=== PATIENT | male | born 1945 | race Caucasian/White ===

== ENCOUNTER 2018-01-16 10:12 | Inpatient (IN) ==
[2018-01-16] MEDS ORDERED: VECURONIUM 10 MG VIAL IV STA ×2 (10:26→13:00)
[2018-01-16] MEDS ORDERED: VECURONIUM 10 MG VIAL IV ONE (10:30)
[2018-01-16] MEDS ORDERED: ETOMIDATE 20 MG/10 ML VIAL IV ONE ×2 (10:30→10:34)
[2018-01-16] MEDS ORDERED: LACTATED RINGERS 1,000 ML IV STA (10:33)
[2018-01-16 10:53] LABS: Basophils # 0.1 10*3/uL (0.0-0.2); Basophils % 0.9 % (0.0-0.8); Eosinophils # 0.8 10*3/uL (0.0-0.87); Eosinophils % 10.9 % (0.00-10.9); Hematocrit 37.2 VOL% (42.0-52.0); Hemoglobin 12.1 GM/DL (14.0-18.0); Immature Granulocytes % 0.3 %; Immature Granulocytes Absolute 0.02 #; Lymphocytes # 2.1 10*3/uL (1.4-4.0); Lymphocytes % 27.3 % (21.2-54.2); Mean Corpuscular HGB Conc 32.5 GM/DL (32-36); Mean Corpuscular Hemoglobin 28 PG (27-34); Mean Corpuscular Volume 85.7 FL (87-102); Mean Platelet Volume 10.7 FL (9.6-12.0); Monocytes # 0.6 10*3/uL (0.11-0.8); Monocytes % 8.5 % (1.7-12.7); Neutrophils # 3.9 10*3/uL (1.4-7.4); Neutrophils % 52.1 % (38.7-73.9); Platelet Count 241 T/CUMM (130-400); Red Blood Count 4.34 MC/CUMM (3.8-5.5); Red Cell Distribution Width 18.2 % (9.3-17.3); White Blood Count 7.5 T/CUMM (4-12)
[2018-01-16 10:59] LABS: PT Patient Result 10.8 SECS; Partial Thromboplastin Time 24.7 SECS (0-40)
[2018-01-16] MEDS ORDERED: PROPOFOL 1,000 MG/100 ML BOTTLE IV ONE (11:12)
[2018-01-16] MEDS ORDERED: PROPOFOL 1,000 MG/100 ML BOTTLE IV SCH (11:20)
[2018-01-16 11:23] LABS: Lactic Acid 7.3 MMOL/L (0.4-2.0)
[2018-01-16 11:24] LABS: Alanine Aminotransferase 19 U/L (16-61); Albumin 3.4 G/DL (3.4-5.0); Alkaline Phosphatase 106 U/L (45-117); Amylase 29 U/L (25-115); Aspartate Amino Transferase 22 U/L (0-37); Blood Urea Nitrogen 19 MG/DL (7-18); Calcium 8.4 MG/DL (8.5-10.1); Glucose 145 MG/DL (74-106); Osmolality,Calculated 292.7 MOS/KG (273-304); Potassium 3.4 MMOL/L (3.5-5.1); Sodium 145 MMOL/L (136-145); Total Protein 6.7 G/DL (6.4-8.3)
[2018-01-16 11:38] LABS: Barbiturates Screen,Urine Negative (Negative); Benzodiazepines Screen,Urine Positive (Negative); Cannabinoid Screen,Urine Negative (Negative); Opiate Screen,Urine Negative (Negative); Phencyclidine Screen,Urine Negative (Negative)
[2018-01-16 12:00] LABS: Amorphous Crystals,Urine Occasional /HPF (Few); Apearance,Urine CLOUDY (Clear); Bacteria,Urine Occasional /HPF (Few); Bilirubin,Urine Negative (Negative); Blood, Urine Moderate mg/dL (Negative); Glucose,Urine (UA) Negative (Negative); Hyaline Casts,Urine 4 /LPF (0-3); Ketones,Urine Negative (Negative); Mucus,Urine Occasional /LPF (Occasional); Nitrite,Urine Negative (Negative); Protein,Urine 100 MG/DL; RBC,Urine 19 /HPF (0-4); Squamous Epithelial Cell,Urine Occasional /HPF (0-10); Urine Specific Gravity 1.017 (1.001-1.035); Urine Urobilinogen < 2.0 EU/DL (0.2-1.0); WBC,Urine 5 /HPF (0-6)
[2018-01-16 12:01] LABS: Urine Color Yellow (Yellow)
[2018-01-16 12:13] LABS: ABG Base Excess -3.5 MMOL/L (-2.5-2.5); ABG HCO3 21.5 MMOL/L (20-26); ABG Oxygen Saturation 99.7 % (95-100); ABG PH 7.368 (7.35-7.45); ABG TCO2 19.2 MMOL/L (23-27)
[2018-01-16] MEDS ORDERED: SODIUM CHLORIDE 0.9% 1,000 ML IV STA (12:57)
[2018-01-16] MEDS: SODIUM CHLORIDE 0.9% 1,000 ML IV SCH ×2 (13:15→22:51)
[2018-01-16] MEDS ORDERED: ONDANSETRON 4 MG/2 ML VIAL IV PRN (13:42)
[2018-01-16] MEDS ORDERED: LACTULOSE 20 GM/30 ML UDCUP PO PRN (13:42)
[2018-01-16] MEDS ORDERED: ALBUTEROL 2.5 MG/3 ML NEB RESP TX PRN (13:42)
[2018-01-16] MEDS ORDERED: ACETAMINOPHEN 325 MG TABLET PO PRN (13:42)
[2018-01-16 14:24] LABS: Thyroid Stimulating Hormone 2.51 uIU/ml (0.358-3.74)
[2018-01-16] MEDS: PANTOPRAZOLE 40 MG VIAL IV SCH (15:19)
[2018-01-16] MEDS ORDERED: DEXTROSE 50% 25 GM/50 ML VIAL IV PRN (15:35)
[2018-01-16] MEDS ORDERED: GLUCAGON 1 MG VIAL IM PRN (15:35)
[2018-01-16] MEDS: ENOXAPARIN 40 MG/0.4 ML SYRINGE SUBCUT SCH (16:22)
[2018-01-16] MEDS: PROPOFOL 1,000 MG/100 ML BOTTLE IV SCH ×2 (16:51→20:22)
[2018-01-16] MEDS: INSULIN LISPRO 100 UNIT/ML SUBCUT SCH (17:37)
[2018-01-16] MEDS: METOPROLOL TARTRATE 25 MG TABLET PO SCH (21:21)
[2018-01-16] MEDS: POTASSIUM CHLORIDE 20 MEQ TABLET PO PRN (21:21)
[2018-01-16] MEDS: ROSUVASTATIN 20 MG TABLET PO SCH (21:21)
[2018-01-16] MEDS: TERAZOSIN 5 MG CAPSULE PO SCH (23:22)
[2018-01-17] MEDS: INSULIN LISPRO 100 UNIT/ML SUBCUT SCH ×5 (00:33→20:32)
[2018-01-17] MEDS: SODIUM CHLORIDE 0.9% 1,000 ML IV SCH ×5 (00:33→21:26)
[2018-01-17] MEDS: POTASSIUM CHLORIDE 20 MEQ TABLET PO PRN ×5 (00:34→11:08)
[2018-01-17] MEDS: PROPOFOL 1,000 MG/100 ML BOTTLE IV SCH ×2 (01:16→05:21)
[2018-01-17 04:06] LABS: Apearance,Urine CLEAR (Clear); Bilirubin,Urine Negative (Negative); Blood, Urine Moderate mg/dL (Negative); Glucose,Urine (UA) Negative (Negative); Ketones,Urine Negative (Negative); Mucus,Urine Occasional /LPF (Occasional); Nitrite,Urine Negative (Negative); Protein,Urine Negative; RBC,Urine 31 /HPF (0-4); Squamous Epithelial Cell,Urine Occasional /HPF (0-10); Urine Color Yellow (Yellow); Urine Specific Gravity 1.031 (1.001-1.035); Urine Urobilinogen < 2.0 EU/DL (0.2-1.0); WBC,Urine 19 /HPF (0-6)
[2018-01-17 04:44] LABS: ABG Base Excess -2.4 MMOL/L (-2.5-2.5); ABG HCO3 20.7 MMOL/L (20-26); ABG Oxygen Saturation 96.9 % (95-100); ABG PCO2 30.3 MM HG (35-48); ABG PH 7.453 (7.35-7.45); ABG PO2 99.1 MM HG (80-95); ABG TCO2 21.7 MMOL/L (23-27); Allen Test Positive; Pt O2 Delivery Device Ventilator
[2018-01-17 06:00] LABS: Basophils % 0.3 % (0.0-0.8); Eosinophils # 0.1 10*3/uL (0.0-0.87); Eosinophils % 0.8 % (0.00-10.9); Hemoglobin 10.6 GM/DL (14.0-18.0); Immature Granulocytes % 0.4 %; Immature Granulocytes Absolute 0.05 #; Lymphocytes # 1.1 10*3/uL (1.4-4.0); Lymphocytes % 8.8 % (21.2-54.2); Mean Corpuscular HGB Conc 33.1 GM/DL (32-36); Mean Corpuscular Hemoglobin 28 PG (27-34); Mean Corpuscular Volume 83.6 FL (87-102); Mean Platelet Volume 10.2 FL (9.6-12.0); Monocytes # 1.4 10*3/uL (0.11-0.8); Neutrophils % 78.7 % (38.7-73.9); Platelet Count 185 T/CUMM (130-400); Red Blood Count 3.83 MC/CUMM (3.8-5.5); Red Cell Distribution Width 18.4 % (9.3-17.3); White Blood Count 12.7 T/CUMM (4-12)
[2018-01-17 06:23] LABS: Hypochromasia 1+; Microcytosis 1+
[2018-01-17 06:24] LABS: Elliptocytes Few; Platelet Estimate Adequate
[2018-01-17 06:26] LABS: Albumin 2.9 G/DL (3.4-5.0); Bilirubin,Total 0.8 MG/DL (0.2-1.0); Calcium 7.8 MG/DL (8.5-10.1); Osmolality,Calculated 287.8 MOS/KG (273-304); Potassium 3.4 MMOL/L (3.5-5.1); Total Protein 5.5 G/DL (6.4-8.3)
[2018-01-17] MEDS: METOPROLOL TARTRATE 25 MG TABLET PO SCH ×2 (08:00→20:32)
[2018-01-17] MEDS: ASPIRIN EC 81 MG TABLET PO SCH (08:01)
[2018-01-17] MEDS: FLUoxetine 20 MG CAPSULE PO SCH (08:01)
[2018-01-17] MEDS: CLOPIDOGREL 75 MG TABLET PO SCH (08:01)
[2018-01-17 12:40] LABS: ABG Base Excess -3.6 MMOL/L (-2.5-2.5); ABG HCO3 21.5 MMOL/L (20-26); ABG Oxygen Saturation 98.1 % (95-100); ABG PCO2 31.6 MM HG (35-48); ABG PH 7.413 (7.35-7.45); ABG TCO2 18.2 MMOL/L (23-27)
[2018-01-17] MEDS: PANTOPRAZOLE 40 MG VIAL IV SCH (14:45)
[2018-01-17 15:25] LABS: Risk Ratio 1.88; VLDL CHOLESTEROL 24.8 MG/DL
[2018-01-17] MEDS: ENOXAPARIN 40 MG/0.4 ML SYRINGE SUBCUT SCH (15:39)
[2018-01-17] MEDS: ROSUVASTATIN 20 MG TABLET PO SCH (20:32)
[2018-01-17] MEDS: TERAZOSIN 5 MG CAPSULE PO SCH (20:32)
[2018-01-18 03:48] LABS: Basophils % 0.3 % (0.0-0.8); Eosinophils % 0.3 % (0.00-10.9); Hemoglobin 9.9 GM/DL (14.0-18.0); Immature Granulocytes % 1.1 %; Immature Granulocytes Absolute 0.11 #; Lymphocytes # 0.8 10*3/uL (1.4-4.0); Mean Corpuscular HGB Conc 31.9 GM/DL (32-36); Mean Corpuscular Hemoglobin 28 PG (27-34); Mean Corpuscular Volume 87.3 FL (87-102); Mean Platelet Volume 11.6 FL (9.6-12.0); Monocytes # 0.8 10*3/uL (0.11-0.8); Monocytes % 7.7 % (1.7-12.7); Neutrophils # 8.5 10*3/uL (1.4-7.4); Neutrophils % 82.6 % (38.7-73.9); Platelet Count 149 T/CUMM (130-400); Red Blood Count 3.55 MC/CUMM (3.8-5.5); Red Cell Distribution Width 18.7 % (9.3-17.3); White Blood Count 10.3 T/CUMM (4-12)
[2018-01-18 04:10] LABS: ABG Base Excess -3.8 MMOL/L (-2.5-2.5); ABG HCO3 19.7 MMOL/L (20-26); ABG Oxygen Saturation 93.5 % (95-100); ABG PCO2 30.4 MM HG (35-48); ABG PH 7.429 (7.35-7.45); ABG PO2 70.9 MM HG (80-95); ABG TCO2 20.6 MMOL/L (23-27); Allen Test Positive
[2018-01-18 05:41] LABS: Calcium 8.2 MG/DL (8.5-10.1); Osmolality,Calculated 289.8 MOS/KG (273-304); Potassium 3.9 MMOL/L (3.5-5.1)
[2018-01-18] MEDS: METOPROLOL TARTRATE 25 MG TABLET PO SCH ×2 (09:52→21:29)
[2018-01-18] MEDS: ASPIRIN EC 81 MG TABLET PO SCH (09:52)
[2018-01-18] MEDS: CLOPIDOGREL 75 MG TABLET PO SCH (09:53)
[2018-01-18] MEDS: FLUoxetine 20 MG CAPSULE PO SCH (09:53)
[2018-01-18] MEDS: INSULIN LISPRO 100 UNIT/ML SUBCUT SCH ×4 (12:37→20:33)
[2018-01-18] MEDS: PANTOPRAZOLE 40 MG VIAL IV SCH (13:39)
[2018-01-18] MEDS: ENOXAPARIN 40 MG/0.4 ML SYRINGE SUBCUT SCH (17:16)
[2018-01-18] MEDS: SODIUM CHLORIDE 0.9% 1,000 ML IV SCH ×2 (20:30→20:34)
[2018-01-18] MEDS: ROSUVASTATIN 20 MG TABLET PO SCH (21:29)
[2018-01-18] MEDS: TERAZOSIN 5 MG CAPSULE PO SCH (21:29)
[2018-01-19 04:12] LABS: Calcium 8.2 MG/DL (8.5-10.1); Osmolality,Calculated 280.4 MOS/KG (273-304); Potassium 3.6 MMOL/L (3.5-5.1)
[2018-01-19] MEDS: SODIUM CHLORIDE 0.9% 1,000 ML IV SCH ×2 (06:30→13:17)
[2018-01-19] MEDS: CLOPIDOGREL 75 MG TABLET PO SCH (08:51)
[2018-01-19] MEDS: ASPIRIN EC 81 MG TABLET PO SCH (08:51)
[2018-01-19] MEDS: METOPROLOL TARTRATE 25 MG TABLET PO SCH ×2 (08:51→20:55)
[2018-01-19] MEDS: FLUoxetine 20 MG CAPSULE PO SCH (08:52)
[2018-01-19] MEDS: INSULIN LISPRO 100 UNIT/ML SUBCUT SCH ×2 (08:53→11:30)
[2018-01-19] MEDS: ENOXAPARIN 40 MG/0.4 ML SYRINGE SUBCUT SCH (17:38)
[2018-01-19] MEDS: CIPROFLOXACIN INJ 400 MG in PREMIX 1 EACH IV SCH (17:38)
[2018-01-19] MEDS: AMPICILLIN 500 MG CAPSULE PO SCH ×2 (17:40→20:55)
[2018-01-19] MEDS: TERAZOSIN 5 MG CAPSULE PO SCH (20:55)
[2018-01-19] MEDS: ROSUVASTATIN 20 MG TABLET PO SCH (20:55)
[2018-01-20] MEDS: CIPROFLOXACIN INJ 400 MG in PREMIX 1 EACH IV SCH (03:27)
[2018-01-20] MEDS: DILTIAZEM INJ 100 MG in SODIUM CHLORIDE 0.9% 100 ML IV SCH ×2 (06:21→21:27)
[2018-01-20] MEDS: ENOXAPARIN 100 MG/ML SYRINGE SUBCUT SCH ×2 (06:22→17:36)
[2018-01-20] MEDS: CLOPIDOGREL 75 MG TABLET PO SCH (08:18)
[2018-01-20] MEDS: ASPIRIN EC 81 MG TABLET PO SCH (08:18)
[2018-01-20] MEDS: AMPICILLIN 500 MG CAPSULE PO SCH (08:18)
[2018-01-20] MEDS: FLUoxetine 20 MG CAPSULE PO SCH (08:18)
[2018-01-20] MEDS: METOPROLOL TARTRATE 25 MG TABLET PO SCH (08:19)
[2018-01-20] MEDS: PANTOPRAZOLE 40 MG TABLET PO SCH (12:12)
[2018-01-20] MEDS ORDERED: METOPROLOL TARTRATE 25 MG TABLET PO SCH (20:00)
[2018-01-20] MEDS: ROSUVASTATIN 20 MG TABLET PO SCH (21:26)
[2018-01-20] MEDS: CIPROFLOXACIN 500 MG TABLET PO SCH (21:26)
[2018-01-20] MEDS: levETIRAcetam 500 MG TABLET PO SCH (21:26)
[2018-01-20] MEDS: TERAZOSIN 5 MG CAPSULE PO SCH (21:26)
[2018-01-21 03:13] LABS: Basophils % 0.2 % (0.0-0.8); Eosinophils # 0.6 10*3/uL (0.0-0.87); Eosinophils % 6.7 % (0.00-10.9); Hematocrit 28.8 VOL% (42.0-52.0); Hemoglobin 9.8 GM/DL (14.0-18.0); Immature Granulocytes Absolute 0.08 #; Lymphocytes # 0.6 10*3/uL (1.4-4.0); Lymphocytes % 7.8 % (21.2-54.2); Mean Corpuscular Hemoglobin 28 PG (27-34); Mean Corpuscular Volume 83.2 FL (87-102); Mean Platelet Volume 11.2 FL (9.6-12.0); Monocytes # 0.9 10*3/uL (0.11-0.8); Monocytes % 10.8 % (1.7-12.7); Neutrophils # 6.1 10*3/uL (1.4-7.4); Neutrophils % 73.5 % (38.7-73.9); Platelet Count 185 T/CUMM (130-400); Red Blood Count 3.46 MC/CUMM (3.8-5.5); Red Cell Distribution Width 17.7 % (9.3-17.3); White Blood Count 8.2 T/CUMM (4-12)
[2018-01-21 03:27] LABS: Calcium 8.2 MG/DL (8.5-10.1); Osmolality,Calculated 280.4 MOS/KG (273-304); Potassium 3.3 MMOL/L (3.5-5.1)
[2018-01-21 03:46] LABS: Folate 12.2 NG/ML (5.4-24.0); Vitamin B12 325 PG/ML (211-911)
[2018-01-21 04:32] LABS: Sedimentation Rate-Westergren 77 MM/HR (0-20)
[2018-01-21] MEDS ORDERED: POTASSIUM CHLORIDE 20 MEQ TABLET PO PRN (05:16)
[2018-01-21] MEDS: DILTIAZEM INJ 100 MG in SODIUM CHLORIDE 0.9% 100 ML IV SCH (05:23)
[2018-01-21] MEDS: ENOXAPARIN 100 MG/ML SYRINGE SUBCUT SCH ×2 (06:07→18:11)
[2018-01-21] MEDS ORDERED: POTASSIUM CHLORIDE 20 MEQ TABLET PO ONE (08:26)
[2018-01-21] MEDS: SOTALOL 80 MG TABLET PO SCH ×2 (08:52→21:44)
[2018-01-21] MEDS: PANTOPRAZOLE 40 MG TABLET PO SCH (08:52)
[2018-01-21] MEDS: levETIRAcetam 500 MG TABLET PO SCH ×2 (08:52→21:44)
[2018-01-21] MEDS: CIPROFLOXACIN 500 MG TABLET PO SCH ×2 (08:52→21:44)
[2018-01-21] MEDS: ASPIRIN EC 81 MG TABLET PO SCH (08:52)
[2018-01-21] MEDS: FLUoxetine 20 MG CAPSULE PO SCH (08:52)
[2018-01-21] MEDS: CLOPIDOGREL 75 MG TABLET PO SCH (08:52)
[2018-01-21 11:08] LABS: Hemoglobin A1 (Alkaline) 97.6 % (96.5-98.5); Hemoglobin A2 (Alkaline) 2.4 % (1.5-3.5)
[2018-01-21] MEDS: ROSUVASTATIN 20 MG TABLET PO SCH (21:44)
[2018-01-21] MEDS: TERAZOSIN 5 MG CAPSULE PO SCH (21:44)
[2018-01-22] MEDS: DILTIAZEM INJ 100 MG in SODIUM CHLORIDE 0.9% 100 ML IV SCH (05:35)
[2018-01-22] MEDS: ENOXAPARIN 100 MG/ML SYRINGE SUBCUT SCH (05:37)
[2018-01-22 08:09] VITALS: BP 109/50
[2018-01-22] MEDS: FLUoxetine 20 MG CAPSULE PO SCH (08:24)
[2018-01-22] MEDS: SOTALOL 80 MG TABLET PO SCH (08:24)
[2018-01-22] MEDS: PANTOPRAZOLE 40 MG TABLET PO SCH (08:24)
[2018-01-22] MEDS: ASPIRIN EC 81 MG TABLET PO SCH (08:24)
[2018-01-22] MEDS: CLOPIDOGREL 75 MG TABLET PO SCH (08:24)
[2018-01-22] MEDS: CIPROFLOXACIN 500 MG TABLET PO SCH (08:24)
[2018-01-22] MEDS: levETIRAcetam 500 MG TABLET PO SCH (08:28)
[2018-01-22 11:38] LABS: Calcium 8.1 MG/DL (8.5-10.1); Osmolality,Calculated 281.5 MOS/KG (273-304); Potassium 3.6 MMOL/L (3.5-5.1)
== END 2018-01-22 15:01 | DRG 57 ==
LOC: EDUNIT# → N.ED 10:12 → SUATTDRO 13:42 → N.EDINP 13:42 → N.CC 16:57 → N.3E 01-19 12:11 → N.TELES 01-19 20:41
PROVIDERS: ADMIT Internal Medicine; ATTEND Internal Medicine